=== PATIENT | female | born 1970 | race Caucasian/White ===

== ENCOUNTER 2022-01-16 07:15 | Inpatient (IN) | payer BC ==
[2022-02-08] MEDS ORDERED: Scopolamine 1.5 MG Transdermal Patch TOP SCH (05:30)
[2022-02-08] MEDS ORDERED: Celecoxib 200 MG Cap PO ONE (05:30)
[2022-02-08] MEDS ORDERED: Acetaminophen 500 MG Tab PO ONE (05:30)
[2022-02-08] MEDS ORDERED: Dextrose 5%-Lactated Ringers 1,000 ML IV SCH (06:00)
[2022-02-08 06:24] LABS: HEMOGLOBIN A1C 5.7 % (4.5-6.2)
[2022-02-08 06:38] LABS: ESTIMATED GFR 89 mL/min (>60)
[2022-02-08] MEDS ORDERED: Bupivacaine 0.5% 30 ML SDV ONE (06:56)
[2022-02-08] MEDS ORDERED: Meropenem 500 MG SDV ONE (06:56)
[2022-02-08] MEDS ORDERED: Lidocaine 1% with EPINEPHrine 1:100,000 50 ML MDV ONE (06:57)
[2022-02-08] MEDS ORDERED: Rocuronium 50 MG/5 ML Vial ONE (07:05)
[2022-02-08] MEDS ORDERED: Dexamethasone 4 MG/ML SDV ONE (07:05)
[2022-02-08] MEDS ORDERED: Glycopyrrolate 0.2 MG/ML 5 ML MDV ONE (07:05)
[2022-02-08] MEDS ORDERED: Propofol 200 MG/20 ML SDV ONE (07:05)
[2022-02-08] MEDS ORDERED: Ondansetron 4 MG/2 ML SDV ONE (07:05)
[2022-02-08] MEDS ORDERED: Succinylcholine 200 MG/10 ML MDV ONE ×2 (07:05→09:18)
[2022-02-08] MEDS ORDERED: Neostigmine Methylsulfate 1 MG/ML 5 ML Syringe ONE (07:05)
[2022-02-08] MEDS ORDERED: fentaNYL 250 MCG/5 ML SDV ONE ×2 (07:07→07:35)
[2022-02-08] MEDS ORDERED: cefOXitin 2 GM in Sodium Chloride 0.9% 50 ML IV ONE (07:15)
[2022-02-08] MEDS ORDERED: Ketamine 500 MG/5 ML MDV IV SCH (07:30)
[2022-02-08] MEDS ORDERED: Ketamine 18 MG in Sodium Chloride 0.9% 19.82 ML IV SCH (07:30)
[2022-02-08] MEDS ORDERED: fentaNYL 100 MCG/2 ML SDV ONE (08:26)
[2022-02-08] MEDS: Labetalol 20 MG/4 ML Syringe IVPUSH PRN ×3 (10:21→10:36)
[2022-02-08] MEDS ORDERED: Lactated Ringers 1,000 ML ONE (11:46)
[2022-02-08] MEDS ORDERED: HYDROmorphone 1 MG/ML Syringe IV PRN (12:00)
[2022-02-08] MEDS ORDERED: Labetalol 20 MG/4 ML Syringe IVPUSH PRN (12:00)
[2022-02-08] MEDS ORDERED: diphenhydrAMINE 50 MG/ML SDV IVPUSH PRN (12:00)
[2022-02-08] MEDS ORDERED: traMADol 50 MG Tab PO PRN (12:00)
[2022-02-08] MEDS ORDERED: Ondansetron 4 MG/2 ML SDV IVPUSH PRN (12:00)
[2022-02-08] MEDS ORDERED: HYDROmorphone 0.5 MG/0.5 ML Syringe IVPUSH PRN (12:00)
[2022-02-08] MEDS ORDERED: Metoclopramide 10 MG/2 ML SDV IVPUSH PRN (12:00)
[2022-02-08] MEDS ORDERED: hydrOXYzine HCL 100 MG/2 ML SDV IM PRN (12:00)
[2022-02-08] MEDS ORDERED: Acetaminophen 500 MG Tab PO PRN (12:00)
[2022-02-08] MEDS: Dextrose 5%-Lactated Ringers 1,000 ML IV SCH (13:07)
[2022-02-08] MEDS ORDERED: Benzocaine/Cetylpyridinium/Menthol Lozenge MUCMEM PRN (14:55)
[2022-02-08] MEDS: cefOXitin 2 GM in Sodium Chloride 0.9% 50 ML IV SCH ×2 (14:55→22:12)
[2022-02-08] MEDS: Acetaminophen 500 MG Tab PO SCH ×2 (14:59→22:11)
[2022-02-08] MEDS ORDERED: Pantoprazole 40 MG Vial IVPUSH SCH (15:00)
[2022-02-08] MEDS ORDERED: MVI, Adult with Vitamin K 10 ML, Thiamine 200 MG, Zinc/Copper/Manganese/Selenium 1 ML i... IV SCH ×4 (16:00)
[2022-02-08] MEDS: Heparin Sodium 5,000 Units/ML Vial SUBCUT SCH (17:41)
[2022-02-08] MEDS: Cyclobenzaprine 10 MG Tab PO PRN (18:11)
[2022-02-08] MEDS: oxyCODONE 5 MG Tab PO PRN (22:12)
[2022-02-09] MEDS: Dextrose 5%-Lactated Ringers 1,000 ML IV SCH (01:56)
[2022-02-09] MEDS: cefOXitin 2 GM in Sodium Chloride 0.9% 50 ML IV SCH ×4 (03:09→21:43)
[2022-02-09] MEDS ORDERED: Iopamidol 612 MG/ML 50 ML SDV PO ONE (04:30)
[2022-02-09] MEDS: Heparin Sodium 5,000 Units/ML Vial SUBCUT SCH ×2 (06:18→18:50)
[2022-02-09] MEDS ORDERED: Ondansetron 4 MG Tab.DIS PO PRN (07:49)
[2022-02-09] MEDS ORDERED: hydrOXYzine HCl 25 MG Tab PO PRN (07:50)
[2022-02-09] MEDS ORDERED: Dextrose 5%-Lactated Ringers 1,000 ML IV SCH (08:00)
[2022-02-09] MEDS: Acetaminophen 500 MG Tab PO SCH ×3 (08:02→22:29)
[2022-02-09] MEDS: oxyCODONE 5 MG Tab PO PRN (08:03)
[2022-02-09] MEDS: SCOPOLAMINE PATCH CHECK TOP SCH (09:00)
[2022-02-09] MEDS: Celecoxib 200 MG Cap PO SCH ×2 (09:07→21:37)
[2022-02-09] MEDS: FLUoxetine 20 MG Cap PO SCH (09:07)
[2022-02-09] MEDS: Cyclobenzaprine 10 MG Tab PO PRN ×2 (13:41→21:42)
[2022-02-09] MEDS ORDERED: MVI, Adult with Vitamin K 10 ML, Thiamine 200 MG, Zinc/Copper/Manganese/Selenium 1 ML i... IV SCH ×4 (16:00)
[2022-02-09] MEDS ORDERED: Pantoprazole 40 MG Delayed-Release Granules 1 Packet PO SCH (16:30)
[2022-02-10] MEDS: Acetaminophen 500 MG Tab PO SCH (06:40)
[2022-02-10] MEDS: Heparin Sodium 5,000 Units/ML Vial SUBCUT SCH (06:40)
[2022-02-10] MEDS: Celecoxib 200 MG Cap PO SCH (08:03)
[2022-02-10] MEDS: FLUoxetine 20 MG Cap PO SCH (08:04)
[2022-02-10] MEDS: SCOPOLAMINE PATCH CHECK TOP SCH (08:11)
[2022-02-10] MEDS ORDERED: Cyanocobalamin (Vitamin B12) 1,000 MCG/ML SDV IM ONE (09:00)
[2022-02-10] MEDS: Cyclobenzaprine 10 MG Tab PO PRN (10:32)
== END 2022-02-10 10:40 | disposition home or self-care (01) | DRG 403 ==
LOC: JP.SDS 02-08 05:38 → EDSTATUS 02-08 07:45 → JP.MS 02-08 09:30
PROVIDERS: ADMIT Surgery; ATTEND Surgery
PROC: 0D164ZA Bypass Stomach to Jejunum, Percutaneous Endoscopic Approach (ICD-10-PCS; principal; 2022-02-08)
PROC: 0FB24ZX Excision of Left Lobe Liver, Percutaneous Endoscopic Approach, Diagnostic (ICD-10-PCS; 2022-02-08)
PROC: 0BQT4ZZ Repair Diaphragm, Percutaneous Endoscopic Approach (ICD-10-PCS; 2022-02-08)
PROC: 0JB63ZZ Excision of Chest Subcutaneous Tissue and Fascia, Percutaneous Approach (ICD-10-PCS; 2022-02-08)
DX: E66.01 Morbid (severe) obesity due to excess calories (principal); Z68.41 Body mass index [BMI] 40.0-44.9, adult; K21.9 Gastro-esophageal reflux disease without esophagitis; R16.0 Hepatomegaly, not elsewhere classified; K44.9 Diaphragmatic hernia without obstruction or gangrene; D17.4 Benign lipomatous neoplasm of intrathoracic organs; H91.90 Unspecified hearing loss, unspecified ear; F32.A Depression, unspecified; G47.33 Obstructive sleep apnea (adult) (pediatric); Z79.899 Other long term (current) drug therapy; Z20.822 Contact with and (suspected) exposure to COVID-19
CPT/HCPCS: 36415; 74240; 74240-26; 80053; 83036; 83735; 83880; 84100; 84703; 85027; 86850; 86900; 86901; 88304; 88307; 88313; A9270-GY; C9113; J0171; J0330; J0694; J1100; J1644; J2185; J2405; J2704; J2710; J2795; J3010; J3410; J3411; J3420; J3490; J7120; J7121; Q9967; U0002